=== PATIENT | male | born 1995 | race Two or more races ===

== ENCOUNTER 2017-04-10 07:15 | Emergency (ER) | payer MEDICAID ==
[~2017-04-10] VITALS: Ht 177.8 cm; Wt 118.4 kg
[2017-04-10 07:20] VITALS: BP 141/84
== END 2017-04-10 07:50 | disposition home or self-care (01) ==
LOC: ER 07:15
DX: F41.9 Anxiety disorder, unspecified (principal); J45.909 Unspecified asthma, uncomplicated; R20.0 Anesthesia of skin; R06.4 Hyperventilation